=== PATIENT | male | born 1955 | race Caucasian/White ===

== ENCOUNTER 2017-12-24 16:07 | Emergency (ER) | payer MEDICAID ==
[~2017-12-24] VITALS: Ht 195.6 cm; Wt 70.0 kg
[2017-12-24] MEDS ORDERED: BACDS PO (16:58)
[2017-12-24 17:10] VITALS: BP 120/78
== END 2017-12-24 17:12 | disposition home or self-care (01) ==
LOC: ER 16:07
DX: L97.519 Non-pressure chronic ulcer of other part of right foot with unspecified severity (principal); G89.29 Other chronic pain; Z79.899 Other long term (current) drug therapy
CPT/HCPCS: 73620; 99284

== ENCOUNTER 2018-07-14 19:34 | Emergency (ER) | payer MEDICAID ==
[~2018-07-14] VITALS: Ht 198.1 cm; Wt 90.0 kg
[2018-07-14] MEDS ORDERED: CEPH500C5 PO (20:55)
[2018-07-14] MEDS ORDERED: TRAM50TA2 PO (20:55)
[2018-07-14 21:29] VITALS: BP 125/87
== END 2018-07-14 21:30 | disposition home or self-care (01) ==
LOC: ER 19:34
DX: L03.115 Cellulitis of right lower limb (principal); G89.29 Other chronic pain; M54.9 Dorsalgia, unspecified
CPT/HCPCS: 99283

== ENCOUNTER 2020-01-18 10:18 | Inpatient (IN) | payer MEDICAID ==
[~2020-01-18] VITALS: Ht 195.6 cm; Wt 89.2 kg
[2020-01-18] MEDS ORDERED: normal saline 1000ML IV soln IV ONE (11:20)
[2020-01-18 11:33] LABS: BASOPHILS # (AUTO) 0.1 X10'3 (0-0.2); BASOPHILS % (AUTO) 0.9 % (0-1); EOSINOPHILS # (AUTO) 0.4 X10'3 (0-0.9); EOSINOPHILS % (AUTO) 5.5 % (0-6); HEMOGLOBIN 12.9 g/dl (14.0-17.9); LYMPHOCYTES # (AUTO) 1.7 X10'3 (1.1-4.8); LYMPHOCYTES % (AUTO) 23.6 % (21-51); MEAN CORPUSCULAR HEMOGLOBIN 30.1 PG (27.0-31.0); MEAN CORPUSCULAR HGB CONC 33.2 g/dL (33.0-36.5); MEAN CORPUSCULAR VOLUME 90.5 FL (78-98); MEAN PLATELET VOLUME 6.4 FL (7.4-10.4); MONOCYTES # (AUTO) 0.6 X10'3 (0-0.9); MONOCYTES % (AUTO) 8.5 % (2-12); NEUTROPHILS # (AUTO) 4.5 X10'3 (1.8-7.7); NEUTROPHILS % (AUTO) 61.5 % (42-75); PLATELET COUNT 355 X10'3 (140-440); RED CELL DISTRIBUTION WIDTH 13.1 % (11.5-14.5); WHITE BLOOD COUNT 7.3 X10'3 (4.5-11.0)
[2020-01-18 11:49] LABS: ALANINE AMINOTRANSFERASE 36 U/L (12-78); ALBUMIN 3.5 G/DL (3.4-5.0); ALKALINE PHOSPHATASE 111 IU/L (46-116); ANION GAP 6 (8-16); ASPARTATE AMINO TRANSFERASE 22 U/L (10-37); BILIRUBIN,TOTAL 0.3 MG/DL (0.1-1.0); BLOOD UREA NITROGEN 18 MG/DL (7-18); CALCIUM 8.7 MG/DL (8.5-10.1); CHLORIDE 104 MMOL/L (99-107); GLUCOSE 111 MG/DL (70-104); POTASSIUM 3.9 MMOL/L (3.5-5.1); SODIUM 139 MMOL/L (135-145); TOTAL CARBON DIOXIDE 28.7 MMOL/L (24-32); TOTAL PROTEIN 6.9 G/DL (6.4-8.2); eGFR 75 ML/MIN
[2020-01-18] MEDS ORDERED: vancomycin/NS 1 GM ADD-VANTAGE 250 ML IV ONE (13:00)
[2020-01-18] MEDS ORDERED: piperacillin/tazo 3.375gm/50ml 50 ML IV ONE (13:00)
[2020-01-18] MEDS ORDERED: MELO-100 PO (13:12)
[2020-01-18] MEDS ORDERED: MULT-227 PO (13:12)
[2020-01-18] MEDS ORDERED: magnesium 2GM in 50ml NS 50 ML IV PRN (14:15)
[2020-01-18] MEDS ORDERED: magnesium hydroxide 30ml (MOM) UD suspension PO PRN (14:15)
[2020-01-18] MEDS ORDERED: potassium CL 10mEq/100ml bag 100 ML IV PRN ×2 (14:15)
[2020-01-18] MEDS ORDERED: dextrose ORAL solution 15 GM/59 ML bottle PO PRN ×2 (14:15)
[2020-01-18] MEDS ORDERED: bisacodyl 10mg suppository rectal RC PRN (14:15)
[2020-01-18] MEDS ORDERED: acetaminophen 650mg rectal suppository RC PRN (14:15)
[2020-01-18] MEDS ORDERED: mag hydrox/Alum hydrox/simeth 30ml oral suspension PO PRN (14:15)
[2020-01-18] MEDS ORDERED: MESSAGE TO PHARMACY PO ONE (14:15)
[2020-01-18] MEDS ORDERED: acetaminophen 325mg tablet PO PRN ×2 (14:15)
[2020-01-18] MEDS ORDERED: metoclopramide 5 mg/ml inj IV PRN (14:15)
[2020-01-18] MEDS ORDERED: insulin Lispro (HumaLOG) vial - multi-dose SQ SCH (14:15)
[2020-01-18] MEDS ORDERED: dextrose 50%-water 50ml dispensing syringe IV PRN ×2 (14:15)
[2020-01-18] MEDS ORDERED: magnesium 4gm in 100ml NS 100 ML IV PRN (14:15)
[2020-01-18] MEDS ORDERED: glucagon, human recombinant 1mg kit SUBCUT PRN (14:15)
[2020-01-18] MEDS ORDERED: magnesium Cl slow-release 64mg tablet PO PRN (14:15)
[2020-01-18] MEDS ORDERED: potassium Cl 20 mEq SR tablet PO PRN ×2 (14:15)
[2020-01-18] MEDS ORDERED: ondansetron/PF 4mg/2ml inj IV PRN (14:15)
[2020-01-18] MEDS ORDERED: HYDROcodone/acetaminophen 5mg/325mg tablet PO PRN (14:15)
[2020-01-18 15:28] LABS: HEMOGLOBIN A1C 5.7 % (4.5-6.2)
[2020-01-18 16:00] VITALS: BP 135/91
[2020-01-18] MEDS: HYDROcodone/acetaminophen 10/325mg tab PO PRN (17:03)
--- NOTE | 2020-01-18 18:38 | NUR ---
Problems reprioritized. Patient report given, questions answered & plan of care reviewed with ZEINAB Aviles.
[2020-01-18] MEDS ORDERED: K and/or MAG REPLACEMENT MC SCH (20:00)
[2020-01-18] MEDS ORDERED: temazepam 15mg capsule PO PRN (21:00)
[2020-01-18] MEDS ORDERED: insulin glargine (Lantus) pen - multi-dose SQ SCH (21:00)
[2020-01-18] MEDS: VANCOmycin 1250MG/NS 250ml Bag 250 ML IV SCH (21:09)
[2020-01-18 22:00] VITALS: BP 131/81
[2020-01-19] MEDS: HYDROcodone/acetaminophen 10/325mg tab PO PRN (05:11)
[2020-01-19 06:00] VITALS: BP 124/51
--- NOTE | 2020-01-19 06:22 | NUR ---
Problems reprioritized. Patient report given, questions answered & plan of care reviewed with ZEINAB HANNA.
[2020-01-19 06:49] LABS: ALANINE AMINOTRANSFERASE 30 U/L (12-78); ALBUMIN/GLOBULIN RATIO 0.9 (1.1-1.5); ALKALINE PHOSPHATASE 95 IU/L (46-116); ANION GAP 7 (8-16); ASPARTATE AMINO TRANSFERASE 20 U/L (10-37); BILIRUBIN,TOTAL 0.3 MG/DL (0.1-1.0); BLOOD UREA NITROGEN 18 MG/DL (7-18); BUN/CREATININE RATIO 21.2 (5.4-32.0); CALCIUM 8.2 MG/DL (8.5-10.1); CHLORIDE 104 MMOL/L (99-107); CREATININE 0.85 MG/DL (0.60-1.10); GLUCOSE 91 MG/DL (70-104); MAGNESIUM 1.7 MG/DL (1.5-2.4); POTASSIUM 4.2 MMOL/L (3.5-5.1); SODIUM 138 MMOL/L (135-145); TOTAL CARBON DIOXIDE 27.2 MMOL/L (24-32); TOTAL PROTEIN 6.2 G/DL (6.4-8.2); eGFR > 90 ML/MIN
[2020-01-19 06:54] LABS: BASOPHILS # (AUTO) 0.1 X10'3 (0-0.2); BASOPHILS % (AUTO) 1.1 % (0-1); EOSINOPHILS # (AUTO) 0.5 X10'3 (0-0.9); HEMATOCRIT 37.3 % (42.0-52.0); HEMOGLOBIN 12.6 g/dl (14.0-17.9); LYMPHOCYTES # (AUTO) 2.1 X10'3 (1.1-4.8); LYMPHOCYTES % (AUTO) 30.3 % (21-51); MEAN CORPUSCULAR HEMOGLOBIN 30.6 PG (27.0-31.0); MEAN CORPUSCULAR HGB CONC 33.7 g/dL (33.0-36.5); MEAN CORPUSCULAR VOLUME 90.9 FL (78-98); MEAN PLATELET VOLUME 6.5 FL (7.4-10.4); MONOCYTES # (AUTO) 0.6 X10'3 (0-0.9); MONOCYTES % (AUTO) 8.5 % (2-12); NEUTROPHILS # (AUTO) 3.7 X10'3 (1.8-7.7); NEUTROPHILS % (AUTO) 53.1 % (42-75); PLATELET COUNT 332 X10'3 (140-440); RED BLOOD COUNT 4.11 X10'6 (4.70-6.10); RED CELL DISTRIBUTION WIDTH 12.7 % (11.5-14.5)
[2020-01-19] MEDS: VANCOmycin 1250MG/NS 250ml Bag 250 ML IV SCH (07:40)
[2020-01-19] MEDS ORDERED: enoxaparin 40mg/0.4ml syringe SQ SCH (08:00)
[2020-01-19 10:00] VITALS: BP 132/81
--- NOTE | 2020-01-19 10:00 | NUR ---
Wound care presented at pt's bedside. Pt gave verbal consent to be seen. On pt's lateral left foot is a calloused, slightly deformed area of the foot, though no open wound is present. The right 2nd toe has a small partial to full thickness wound with a yellow wound bed on the plantar surface. 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 The area has surrounding established callus and appears to be from pressure, unstageable with yellow wound bed. Cleansed and applied therahoney and alginate to wound bed, then wrapped with gauze and secured with medipore tape. Recommended pt follow up with a wound care clinic
[2020-01-19 10:09] LABS: C-REACTIVE PROTEIN 0.11 MG/DL (0.0-0.5)
[2020-01-19] MEDS ORDERED: HYDR-4383 PO (11:42)
[2020-01-19] MEDS ORDERED: CEPH500C5 PO (11:42)
--- NOTE | 2020-01-19 13:10 | NUR ---
Received discharge orders from Dr. Garcia. Per Dr. Mcadams pt is to call Dr. Ulloa to make arrangements for toe amputation surgery on Saturday this week. Sent dressings (Vaseline Gauze, and 2 inch gauze roll with tape home to patient to change dressing daily and prn until his surgery is completed. Instructed pt keep his feet elevated while sitting or in bed. Dc'd IV with cannula intact. No redness or swelling at insertion site. Pt discharged to personal vehicle via w/c.
[2020-01-19] MEDS ORDERED: GADOTERATE MEGLUMINE 7.5 MMOL/15 ML VIAL IV ONE (17:59)
[2020-01-19] MEDS ORDERED: VANCOMYCIN LEVEL IV ONE (21:30)
[2020-01-20] MEDS ORDERED: CEPH500C2 PO (14:54)
== END 2020-01-19 13:15 | disposition home or self-care (01) | DRG 344 ==
LOC: ER 10:19 → ED HOLD 14:15 → ORTHO 4S 16:00
PROVIDERS: ADMIT Family Medicine; ATTEND Family Medicine
PROC: BQ3LYZZ Magnetic Resonance Imaging (MRI) of Right Foot using Other Contrast (ICD-10-PCS; principal; 2020-01-19)
DX: M86.8X7 Other osteomyelitis, ankle and foot (principal); E16.2 Hypoglycemia, unspecified; L03.031 Cellulitis of right toe; F12.90 Cannabis use, unspecified, uncomplicated; G89.29 Other chronic pain; M54.9 Dorsalgia, unspecified; Z85.46 Personal history of malignant neoplasm of prostate; Z87.442 Personal history of urinary calculi; Z90.49 Acquired absence of other specified parts of digestive tract; Z79.899 Other long term (current) drug therapy
CPT/HCPCS: 36415; 71045; 73720; 80053; 82948; 83036; 83605; 83735; 84145; 85025; 85651; 86140; 87040; 87070; 87077; 87081; 87186; 96361; 96365; 96367; 99285; A9575; G0378; J1815; J2405; J2543; J3370; J7030

== ENCOUNTER 2020-01-22 10:42 | Day surgery (SDC) | payer MEDICAID ==
[2020-01-20 15:17] LABS: CLARITY,URINE CLEAR (Clear); COLOR,URINE YELLOW (Yellow); GLUCOSE, URINE NEGATIVE (Neg); KETONES,URINE NEGATIVE (Neg); LEUKOCYTE ESTERASE ,URINE NEGATIVE (Neg); NITRITES, URINE NEGATIVE (Neg); OCCULT BLOOD,URINE MODERATE (Neg); PH,URINE 5.5 (4.8-8.0); PROTEIN,URINE NEGATIVE (Neg); UROBILINOGEN,URINE 0.2 E.U/dL (0.2-1.0)
[2020-01-20 15:19] LABS: UA COLLECTION TYPE CLN CATCH MIDSTREAM
[2020-01-20 15:32] LABS: BACTERIA,URINE FEW /HPF (Neg); MUCUS STRANDS NONE SEEN /LPF (Neg); SPERM MODERATE /HPF (NEGATIVE); SQUAMOUS EPITHELIAL CELL,UR FEW /LPF (FEW)
[~2020-01-22] VITALS: Ht 195.6 cm; Wt 89.8 kg
[2020-01-22] VITALS (9 sets, daily range): BP systolic 128–155; BP diastolic 86–88
[~2020-01-22 10:42] MED LIST: CEPH500C2 PO; MELO-100 PO; MULT-227 PO; ceFAZolin 2gm in dextrose, iso 50 ML IV ONE; famotidine 20mg tablet PO ONE; ringers solution, lacted 1,000 ML IV SCH
[2020-01-22] MEDS ORDERED: bacitracin 15gm ointment TP ONE (11:34)
[2020-01-22] MEDS ORDERED: fentaNYL/PF 50MCG/1 ML 2ML syringe ONE (12:29)
[2020-01-22] MEDS ORDERED: midazolam 2 mg/2 ml injection ONE (12:29)
[2020-01-22] MEDS ORDERED: LIDOcaine 2% (20mg/ml) 5ml vial ONE (12:30)
[2020-01-22] MEDS ORDERED: propofol inj 20 ML IV ONE (12:30)
[2020-01-22] MEDS ORDERED: ROPIVAcaine 0.5% (5mg/ml) 30ml vial ONE (12:31)
[2020-01-22] MEDS ORDERED: sevoflurane 250ml liquid IH ONE (13:42)
[2020-01-22] MEDS ORDERED: dexamethasone sod phosphate 10mg/ml inj ONE (13:42)
[2020-01-22] MEDS ORDERED: ondansetron/PF 4mg/2ml inj ONE (13:45)
[2020-01-22] MEDS ORDERED: ringers solution, lacted 1,000 ML IV SCH (14:13)
[2020-01-22] MEDS ORDERED: ondansetron/PF 4mg/2ml inj IV PRN (14:15)
[2020-01-22] MEDS ORDERED: hydrALAZINE 20mg/ml inj. IV PRN (14:15)
[2020-01-22] MEDS ORDERED: fentaNYL/PF 50MCG/1 ML 2ML syringe IV PRN ×2 (14:15)
[2020-01-22] MEDS ORDERED: labetalol 20mg/4ml (5mg/ml) syringe IV PRN (14:15)
[2020-01-22] MEDS ORDERED: morphine 2 MG/ML inj. syringe IV PRN (14:15)
[2020-01-22] MEDS ORDERED: morphine 4 MG/ML inj SYRINge IV PRN (14:15)
[2020-01-22] MEDS ORDERED: naloxone 0.4 mg/ml inj ONE (14:21)
--- NOTE | 2020-01-22 14:28 | NUR ---
RECEIVED VIA GURNEY FROM OR ACCOMPANIED BY ANESTHESIOLOGIST DR HI, REPORT GIVEN. PT DROWSY BUT AROUSES EASILY WITH NO COMPLAINT OF PAIN AT THIS TIME. 20 GAUGE PIV R HAND PATENT AND RUNNING LR AT 100 ML/H. R FOOT DRESSING CDI, CAP REFILL BRISK, VSS, MURILLO, ABD SOFT, R FOOT ELEVATED AND ICE APPLIED, RESTING COMFORTABLY.
--- NOTE | 2020-01-22 15:38 | NUR ---
PT AWAKE AND ALERT WITH NO COMPLAINT OF PAIN. 20 GAUGE PIV R FA DC/D CATH TIP INTACT. R LE DRESSING AND SPLINT CDI. BRISK CAP REFILL, SKIN PINK AND WARM, VSS, ABD SOFT. PT TOLERATING FLUIDS, ABLE TO DRESS SELF AND AMBULATE WITH EXTERNAL BOOT TO RLE. DISCHARGE INSTRUCTIONS GIVEN AND PT VERBALIZED UNDERSTANDING. TRANSPORTED VIA WHEELCHAIR TO SIG OTHER IN PRIVATE VEHICLE TO HOME.
== END 2020-01-22 15:38 | disposition home or self-care (01) ==
LOC: PAS 10:42
PROVIDERS: ATTEND Podiatrist Foot & Ankle Surgery
DX: M86.8X7 Other osteomyelitis, ankle and foot (principal); L97.519 Non-pressure chronic ulcer of other part of right foot with unspecified severity; Z79.899 Other long term (current) drug therapy; Z88.1 Allergy status to other antibiotic agents; Z90.49 Acquired absence of other specified parts of digestive tract; Z98.890 Other specified postprocedural states; Z72.89 Other problems related to lifestyle
CPT/HCPCS: 28825; 81001; 82948; 87088; A6222; J1100; J2001; J2250; J2310; J2405; J2704; J3010; J7120; A4618; A6449; A7000; J2795; J3370

== ENCOUNTER 2020-02-19 13:02 | Day surgery (SDC) | payer MEDICAID ==
[2020-02-12 17:16] LABS: CLARITY,URINE CLEAR (Clear); COLOR,URINE YELLOW (Yellow); GLUCOSE, URINE NEGATIVE (Neg); KETONES,URINE NEGATIVE (Neg); LEUKOCYTE ESTERASE ,URINE NEGATIVE (Neg); NITRITES, URINE NEGATIVE (Neg); OCCULT BLOOD,URINE TRACE-INTACT (Neg); PROTEIN,URINE NEGATIVE (Neg); UROBILINOGEN,URINE 0.2 E.U/dL (0.2-1.0)
[2020-02-12 17:18] LABS: UA COLLECTION TYPE CLN CATCH MIDSTREAM
[2020-02-12 17:20] LABS: BASOPHILS # (AUTO) 0.1 X10'3 (0-0.2); EOSINOPHILS # (AUTO) 0.4 X10'3 (0-0.9); EOSINOPHILS % (AUTO) 4.2 % (0-6); LYMPHOCYTES # (AUTO) 2.5 X10'3 (1.1-4.8); LYMPHOCYTES % (AUTO) 28.5 % (21-51); MEAN CORPUSCULAR HGB CONC 34.4 g/dL (33.0-36.5); MEAN CORPUSCULAR VOLUME 89.9 FL (78-98); MEAN PLATELET VOLUME 6.2 FL (7.4-10.4); MONOCYTES # (AUTO) 0.8 X10'3 (0-0.9); NEUTROPHILS # (AUTO) 4.9 X10'3 (1.8-7.7); NEUTROPHILS % (AUTO) 57.3 % (42-75); PRE OP HEMOGLOBIN 13.4 g/dL (14.0-17.9); PRE OP PLATELET COUNT 384 X10'3 (140-440); RED BLOOD COUNT 4.33 X10'6 (4.70-6.10); RED CELL DISTRIBUTION WIDTH 13.1 % (11.5-14.5)
[2020-02-12 17:28] LABS: ALBUMIN/GLOBULIN RATIO 1.1 (1.1-1.5); ALKALINE PHOSPHATASE 111 IU/L (46-116); BLOOD UREA NITROGEN 24 MG/DL (7-18); BUN/CREATININE RATIO 27.6 (5.4-32.0); CALCIUM 8.5 MG/DL (8.5-10.1); CHLORIDE 103 MMOL/L (99-107); CREATININE 0.87 MG/DL (0.60-1.10); PRE OP ALT 42 U/L (30-65); PRE OP ANION GAP 5 (8-16); PRE OP AST 25 U/L (10-37); PRE OP BILIRUB, TOTAL 0.4 MG/DL (0.0-1.0); PRE OP GLUCOSE 99 MG/DL (70-104); PRE OP POTASSIUM 4.1 MMOL/L (3.4-5.1); PRE OP SODIUM 138 MMOL/L (135-145); TOTAL CARBON DIOXIDE 29.6 MMOL/L (24-32); TOTAL PROTEIN 7.5 G/DL (6.4-8.2); eGFR 89 ML/MIN
[2020-02-12 17:39] LABS: MUCUS STRANDS FEW /LPF (Neg); SQUAMOUS EPITHELIAL CELL,UR FEW /LPF (FEW)
[2020-02-12 17:41] LABS: BACTERIA,URINE FEW /HPF (Neg); WBC,URINE 0-4 /HPF (0-4)
[~2020-02-19] VITALS: Ht 195.6 cm; Wt 90.6 kg
[2020-02-19] VITALS (10 sets, daily range): BP systolic 126–162; BP diastolic 78–89
[~2020-02-19 13:02] MED LIST changes: +HYDR-3964 PO; -ceFAZolin 2gm in dextrose, iso 50 ML IV ONE; +cefazolin/dext.iso 2gm/50ml 50 ML IV ONE
[2020-02-19] MEDS ORDERED: sevoflurane 250ml liquid IH ONE (15:54)
[2020-02-19] MEDS ORDERED: propofol inj 20 ML IV ONE (15:56)
[2020-02-19] MEDS ORDERED: midazolam 2 mg/2 ml injection ONE (15:56)
[2020-02-19] MEDS ORDERED: fentaNYL/PF 50MCG/1 ML 2ML syringe ONE (15:56)
[2020-02-19] MEDS ORDERED: bacitracin 15gm ointment TP ONE (16:15)
[2020-02-19] MEDS ORDERED: BUPIVAcaine/PF 2.5 mg/ml (0.25%) 30ml vial ONE (16:15)
[2020-02-19] MEDS ORDERED: ringers solution, lacted 1,000 ML IV SCH (16:41)
[2020-02-19] MEDS ORDERED: ondansetron/PF 4mg/2ml inj IV PRN (16:45)
[2020-02-19] MEDS ORDERED: meperidine/PF 25mg/ml syringe IV PRN ×3 (16:45)
[2020-02-19] MEDS ORDERED: proCHLORperazine 10 MG/2 ml inj IV PRN (16:45)
[2020-02-19] MEDS ORDERED: morphine 2 MG/ML inj. syringe IV PRN (16:45)
[2020-02-19] MEDS ORDERED: morphine 4 MG/ML inj SYRINge IV PRN (16:45)
--- NOTE | 2020-02-19 17:02 | NUR ---
Received from OR via [facility] , accompanied by Anesthesiologist KRISS and report given by Anesthesiolgist. PATIENT WITH CONSTANZA WRAP TO LEFT LE., DRESSING IS CDI. VSS. MEDICATED FOR PAIN UPON ARRIVAL. 10L MASK ON WITH 100% SATURATIONS. Addendum: 02/19/20 at 1737 by Moisés Juárez RN, RN Amended: Links added.
--- NOTE | 2020-02-19 18:22 | NUR ---
I HAVE REVIEWED D/C INSTRUCTIONS WITH PATIENT AND FAMILY AND THEY HAVE VERBALIZED UNDERSTANDING. PATIENT D/C HOME WITH ALL BELONGINGS AND FAMILY GAVE TRANSPORT HOME.. DRESSING TO LEFT FOOT IS CDI. ADMINISTERED ONE NORCO 10 PRIOR TO DC HOME PER MD. FRIEND GAVE PATIENT RIDE HOME. Addendum: 02/19/20 at 1913 by Moisés Juárez RN, RN Amended: Links added.
[2020-02-19] MEDS ORDERED: HYDROcodone/acetaminophen 10/325mg tab PO ONE (18:30)
== END 2020-02-19 18:22 | disposition home or self-care (01) ==
LOC: PAS 13:02
PROVIDERS: ATTEND Podiatrist Foot & Ankle Surgery
DX: M79.89 Other specified soft tissue disorders (principal); M89.372 Hypertrophy of bone, left ankle and foot; M86.8X7 Other osteomyelitis, ankle and foot; F41.9 Anxiety disorder, unspecified; Z20.828 Contact with and (suspected) exposure to other viral communicable diseases; Z89.421 Acquired absence of other right toe(s); Z79.899 Other long term (current) drug therapy; Z88.1 Allergy status to other antibiotic agents; Z90.49 Acquired absence of other specified parts of digestive tract; Z98.890 Other specified postprocedural states
CPT/HCPCS: 28041; 28122; 36415; 80053; 81001; 82948; 85025; 87635; A6222; J2175; J2250; J2270; J2704; J3010; J3490; A4618; A6449; A7000; J7120

== ENCOUNTER 2020-11-24 15:21 | Emergency (ER) | payer MEDICAID ==
[~2020-11-24] VITALS: Ht 198.1 cm; Wt 89.7 kg
[~2020-11-24 15:21] MED LIST changes: -cefazolin/dext.iso 2gm/50ml 50 ML IV ONE; -famotidine 20mg tablet PO ONE; -ringers solution, lacted 1,000 ML IV SCH
[2020-11-24 15:32] VITALS: BP 116/70
[2020-11-24] MEDS ORDERED: cephalexin 500mg capsule PO ONE (17:45)
[2020-11-24] MEDS ORDERED: [UNRECOGNIZED DRUG - CODE] OT (17:46)
[2020-11-24] MEDS ORDERED: CEPH250T PO (17:46)
== END 2020-11-24 17:58 | disposition home or self-care (01) ==
LOC: ER 15:22
DX: H60.12 Cellulitis of left external ear (principal); H61.23 Impacted cerumen, bilateral; G89.29 Other chronic pain; M54.9 Dorsalgia, unspecified; Z79.899 Other long term (current) drug therapy
CPT/HCPCS: 70450; 99284